=== PATIENT | male | born 1985 | race Caucasian/White ===

== ENCOUNTER 2016-05-31 22:40 | Observation (INO) | payer SELFPAY ==
[2016-05-31] MEDS ORDERED: DIPHTH/TETANUS/ACEL PERTUSSIS (BOOSTER) 0.5 ML VIAL/PFS IM ONE ×2 (22:43→23:01)
[2016-05-31] MEDS ORDERED: ceFAZolin 2 GM PREMIX 50 ML ONE (22:43)
[2016-05-31] MEDS ORDERED: MORPHINE SULFATE 8 MG/ML INJ ONE (22:45)
[2016-05-31] MEDS ORDERED: ceFAZolin 2 GM PREMIX 50 ML IV STA (23:00)
[2016-05-31] MEDS ORDERED: IOHEXOL 350 MG/ML 10 ML VIAL (for RAD DIAG) IV ONE (23:02)
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
[2016-05-31 23:03] LABS: AUTOMATED NEUTROPHIL # 3.7 TH/MM3 (1.8-7.7); BASOPHIL # 0.1 TH/MM3 (0-0.2); BASOPHIL % 0.8 % (0.0-2.0); EOSINOPHIL # 0.1 TH/MM3 (0-0.4); EOSINOPHIL % 1.9 % (0.0-4.0); HEMATOCRIT 39.9 % (39.0-51.0); HEMO FLAGS DIFF FINAL; LYMPH % 39.5 % (9.0-44.0); MEAN CELL VOLUME 86.8 FL (80.0-100.0); MEAN CORPUSCULAR HEMOGLOBIN 30.6 PG (27.0-34.0); MEAN CORPUSCULAR HGB CONC 35.2 % (32.0-36.0); MONO % 8.7 % (0.0-8.0); NEUT % 49.1 % (16.0-70.0); PLATELET COUNT 282 TH/MM3 (150-450); RED BLOOD COUNT 4.59 MIL/MM3 (4.50-5.90); RED CELL DISTRIBUTION WIDTH 12.8 % (11.6-17.2); WHITE BLOOD COUNT 7.6 TH/MM3 (4.0-11.0)
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
[2016-05-31 23:09] LABS: I-STAT POTASSIUM 3.6 MMOL/L (3.5-4.9)
[2016-05-31 23:16] LABS: APTT (PATIENT) 27.2 SEC (24.3-30.1); PROTHROMBIN TIME - PATIENT 10.8 SEC (9.8-11.6)
[2016-05-31] MEDS ORDERED: LIDOCAINE 1%/EPINEPHrine 1:100,000 SOLN 20 ML VIAL INFIL ONE (23:30)
[2016-05-31] MEDS ORDERED: KETOROLAC TROMETHAMINE 30 MG/ML (IVP) VIAL IVP PRN (23:30)
[2016-05-31] MEDS ORDERED: ENALAPRILAT 1.25 MG/ML VIAL IV PRN (23:30)
[2016-05-31] MEDS ORDERED: ACETAMINOPHEN/HYDROcodone 325 MG/5 MG TAB PO PRN ×2 (23:30)
[2016-05-31] MEDS ORDERED: SODIUM CHLORIDE 0.9% FLUSH 5 ML FLUSH IVF PRN (23:30)
[2016-05-31] MEDS ORDERED: ONDANSETRON HCL 4 MG/2 ML VIAL IV PRN (23:30)
[2016-06-01] MEDS ORDERED: PANTOPRAZOLE SODIUM 40 MG VIAL IVP SCH
[2016-06-01 00:15] VITALS: BP 115/66; PULSE 83; RESP 16; O2SAT 99
[2016-06-01] MEDS: SODIUM CHLOR 0.9% 1000 ML INJ 1,000 ML IV SCH ×2 (00:35→09:19)
[2016-06-01 01:30] VITALS: BP 103/56; PULSE 71; RESP 16; TEMP 98.9; O2SAT 99
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
[2016-06-01 05:01] VITALS: BP 108/56; PULSE 87; RESP 21; TEMP 97.7; O2SAT 98
[2016-06-01 06:13] LABS: AUTOMATED NEUTROPHIL # 4.2 TH/MM3 (1.8-7.7); BASOPHIL # 0.1 TH/MM3 (0-0.2); BASOPHIL % 0.8 % (0.0-2.0); EOSINOPHIL # 0.1 TH/MM3 (0-0.4); EOSINOPHIL % 1.3 % (0.0-4.0); HEMATOCRIT 35.6 % (39.0-51.0); HEMO FLAGS DIFF FINAL; LYMPH % 32.2 % (9.0-44.0); LYMPHOCYTE # 2.4 TH/MM3 (1.0-4.8); MEAN CELL VOLUME 85.7 FL (80.0-100.0); MEAN CORPUSCULAR HEMOGLOBIN 30.3 PG (27.0-34.0); MEAN CORPUSCULAR HGB CONC 35.3 % (32.0-36.0); NEUT % 57.7 % (16.0-70.0); PLATELET COUNT 249 TH/MM3 (150-450); RED BLOOD COUNT 4.16 MIL/MM3 (4.50-5.90); RED CELL DISTRIBUTION WIDTH 13.2 % (11.6-17.2); WHITE BLOOD COUNT 7.3 TH/MM3 (4.0-11.0)
[2016-06-01 07:42] VITALS: BP 111/67; PULSE 79; RESP 18; TEMP 97.9; O2SAT 97
[2016-06-01] MEDS ORDERED: BACITRACIN TOP OINT 15 GM TUBE TOP SCH (09:00)
[2016-06-01 12:00] VITALS: BP 107/59; PULSE 57; RESP 18; TEMP 95.9; O2SAT 98
[2016-06-01] MEDS ORDERED: NORC5TAB PO (12:38)
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
== END 2016-06-01 13:44 | disposition home or self-care (01) ==
LOC: NEPI 22:40 → EDBD 23:15 → NEDA 23:15 → NEPGCP 06-01 01:17
PROVIDERS: ADMIT Surgery; ATTEND Surgery
DX: S21.112A Laceration without foreign body of left front wall of thorax without penetration into thoracic cavity, initial encounter (principal); S27.0XXA Traumatic pneumothorax, initial encounter; X99.0XXA Assault by sharp glass, initial encounter; Y93.9 Activity, unspecified
CPT/HCPCS: 12002; 71010; 71260; 82435; 82565; 82947; 84132; 84295; 84520; 85025; 85610; 85730; 86850; 86900; 86901; 90471; 90715; 96374; 99285; 99291; C9113; G0378; J0690; J2270; J7030; Q9967; G0390